=== PATIENT | male | born 1980 | race Caucasian/White ===

== ENCOUNTER 2023-03-17 18:16 | Observation (INO) ==
[2023-03-17] MEDS ORDERED: Lactated Ringers 1000 ml BAG 1,000 ML IV ONE (18:30)
[2023-03-17] MEDS ORDERED: Dexamethasone IV 4 MG/ML VIAL 1 ml VIAL IV SLOW PU ONE (18:40)
[2023-03-17] MEDS ORDERED: Clindamycin 600 MG/D5W BAG 600 MG/50 ML BAG IV ONE (18:40)
[2023-03-17 19:12] LABS: Hematocrit 36.9 % (38-53); Hemoglobin 12.2 g/dL (13.2-16.3); Mean Corpuscular Hgb Conc 33.1 g/dL (31-36); Mean Corpuscular Volume 75.5 fL (80-97); Platelet Count 520 10^3/uL (150-450); Red Blood Count 4.89 10^6/uL (4.06-5.63); Red Cell Distribution Width 19.5 % (12-17); White Blood Count 16.7 10^3/uL (3.6-10.2)
[2023-03-17 19:19] LABS: Rapid Strep Molecular Negative (Negative)
[2023-03-17 20:18] LABS: ABS Basophils 0.2 10^3/uL (0.0-0.1); ABS Eosinophils 0.3 10^3/uL (0.0-0.5); ABS Lymphocytes 4.4 10^3/uL (1.0-4.8); ABS Monocytes 2.1 10^3/uL (0.0-1.1); ABS Neutrophils 9.8 10^3/uL (1.5-7.6); ABS Nucleated RBC 0.04 10^3/ul; Eosinophil % 1.6 %; Lymphocyte % 26.5 %; Nucleated Red Blood Cells % 0.3 %/100WBC (0.0-0.8)
[2023-03-17 20:28] LABS: Albumin 4.3 g/dL (3.2-5.2); Albumin/Globulin Ratio 1.3 (1-3); Calcium 9.5 mg/dL (8.6-10.3); Creatinine, Serum 0.79 mg/dL (0.67-1.17); Globulin 3.3 g/dL (2-4); Potassium 3.6 mmol/L (3.5-5.0); Total Bilirubin 0.7 mg/dL (0.2-1.0); Total Protein 7.6 g/dL (6.4-8.9); eGFR CKD-EPI 112.3 (>60)
[2023-03-17] MEDS ORDERED: Iohexol 350 (CONTRAST) 500 ML MDV IV ONE (21:06)
[2023-03-17] MEDS ORDERED: Lactated Ringers 1000 ml BAG 1,000 ML IV SCH (23:45)
[2023-03-18] MEDS ORDERED: Lactated Ringers 1000 ml BAG 1,000 ML IV SCH ×2 (03:03→04:00)
[2023-03-18] MEDS ORDERED: Morphine 2 MG/ML SYRINGE IV PRN (03:03)
[2023-03-18] MEDS ORDERED: D5LR 1000 ml BAG 1,000 ML IV SCH (04:00)
[2023-03-18] MEDS: Clindamycin 600 MG/D5W BAG 600 MG/50 ML BAG IV SCH ×3 (04:14→15:13)
[2023-03-18 07:06] LABS: Hematocrit 35.7 % (38-53); Hemoglobin 11.5 g/dL (13.2-16.3); Mean Corpuscular Hemoglobin 24.4 pg (27-33); Mean Corpuscular Hgb Conc 32.2 g/dL (31-36); Mean Corpuscular Volume 75.8 fL (80-97); Mean Platelet Volume 8.5 fL (7.5-11.2); Platelet Count 493 10^3/uL (150-450); Red Blood Count 4.71 10^6/uL (4.06-5.63); Red Cell Distribution Width 20.1 % (12-17); White Blood Count 12.4 10^3/uL (3.6-10.2)
[2023-03-18 07:34] LABS: Creatinine, Serum 0.8 mg/dL (0.67-1.17); Potassium 4.3 mmol/L (3.5-5.0); eGFR CKD-EPI 111.9 (>60)
[2023-03-18] MEDS ORDERED: Nicotine PATCH 21 MG/24 HR PATCH TRANSDERM SCH (08:00)
[2023-03-18 14:23] VITALS: BP 114/70
== END 2023-03-18 15:20 | disposition home or self-care (01) ==
LOC: EDHOLD 18:16 → ED 18:16 → MED 03-18 00:49
PROVIDERS: ADMIT Internal Medicine; ATTEND Internal Medicine